=== PATIENT | male | born 1995 | race Caucasian/White ===

== ENCOUNTER 2017-03-20 21:33 | Emergency (ER) | payer OTHER ==
[~2017-03-20] VITALS: Ht 167.6 cm; Wt 73.0 kg
[2017-03-20] MEDS ORDERED: HYDROmorphone 2 MG/ML, 1ML ONE (21:40)
[2017-03-20] MEDS ORDERED: PLEASE ENTER ALLERGIES MC SCH ×2 (22:00→22:30)
[2017-03-20] MEDS ORDERED: HYDROmorphone 1 MG/ML, 1ML IV ONE ×2 (22:00→22:30)
[2017-03-20] MEDS ORDERED: MIDAZOLAM 1 MG/ML, 2ML IVPush ONE (22:30)
[2017-03-20] MEDS ORDERED: PROPOFOL 10 MG/ML, 20ML ONE (22:32)
[2017-03-20 22:56] VITALS: BP 116/70
[2017-03-20] MEDS ORDERED: PROPOFOL 10 MG/ML, 20ML IVPush ONE (23:30)
== END 2017-03-21 00:58 | disposition home or self-care (01) ==
LOC: ED 23:59
DX: S43.005A Unspecified dislocation of left shoulder joint, initial encounter (principal); X58.XXXA Exposure to other specified factors, initial encounter; Y93.67 Activity, basketball; Y92.328 Other athletic field as the place of occurrence of the external cause; Y99.8 Other external cause status
CPT/HCPCS: 23650; 73020; 73030; 96374; 99152; 99153; 99285; J1170